=== PATIENT | female | born 1940 | race Caucasian/White ===

== ENCOUNTER 2020-08-25 17:16 | Emergency (ER) | payer OTHER ==
[~2020-08-25] VITALS: Ht 157.5 cm; Wt 45.4 kg
[~2020-08-25 17:16] MED LIST: AUGMENTIN 875-1 EACH PO; AUGMENTIN 875875 MG PO; BYSTOLIC20 MG PO; HYDROCHLOROTH12.5 M1 PO
[2020-08-25 17:45] LABS: URINE BILIRUBIN NEGATIVE (Negative); URINE BLOOD NEGATIVE (Negative); URINE CLARITY CLEAR; URINE COLOR YELLOW; URINE GLUCOSE-RANDOM* NEGATIVE (Negative); URINE KETONES NEGATIVE (Negative); URINE LEUKOCYTES-REFLEX NEGATIVE (Negative); URINE NITRITE-REFLEX NEGATIVE (Negative); URINE PROTEIN (DIPSTICK) NEGATIVE (Negative); URINE UROBILINOGEN 0.2 E.U./dl (0.2-1.0)
[2020-08-25 17:57] LABS: ABSOLUTE NEUTROPHILS 4.1 thou/uL (1.4-8.2); BASOPHILS 1.3 % (0.0-2.0); HEMATOCRIT 35.9 % (37.0-47.0); HEMOGLOBIN 12.1 gm/dL (12.0-15.0); LYMPHOCYTES 22.8 % (24.0-44.0); MCH 31.1 pg (26.0-34.0); MCHC 33.8 g/dL (28.0-37.0); MCV 92.1 fL (80.0-100.0); MONOCYTES 6.8 % (1.0-8.0); PLATELET COUNT 192 thou/uL (150-400); POLYS 67.1 % (36.0-66.0); RDW 13.4 % (10.5-14.5); WBC 6.1 thou/uL (4.0-11.0)
[2020-08-25 18:10] LABS: ANION GAP 11 mmol/L (7-16); BUN 8 mg/dL (7-18); CALCIUM 9.5 mg/dL (8.5-10.1); CHLORIDE 105 mmol/L (98-107); CO2 26 mmol/L (21-32); GLUCOSE 82 mg/dL (74-106); POTASSIUM 3.1 mmol/L (3.5-5.1); SODIUM 142 mmol/L (136-145)
[2020-08-25 18:17] LABS: SALICYLATE < 2.8 mg/dL (2.8-20.0); SGOT 18 U/L (15-37); SGPT 18 U/L (14-59); TOTAL BILIRUBIN 0.6 mg/dL (0.2-1.0)
[2020-08-25 18:20] LABS: AMP/METHAMP Negative (Negative); BARBITURATES Negative (Negative); BENZODIAZEPINES Negative (Negative); COCAINE Negative (Negative); METHADONE Negative (Negative); OPIATES Negative (Negative); PCP Negative (Negative)
[2020-08-26 00:59] VITALS: BP 145/83
--- NOTE | 2020-08-26 06:44 | EKG ---
[address] [address] ELECTROCARDIOGRAM REPORT Name: ADELAIDA CARNEY Room #: [facility] [id number] Admission: 08/25/20 Attend Phys: Discharge: Date of : 38 Report #: [id number] [facility] ED Test Date: 2020-08-25 Test Time: 17:48:34 Pat Name: ADELAIDA CARNEY Department: Room: Gender: F Emotionally Impaired Teacher: Hedy BRADLEY : 1940 Requested By: Hardeep Haines Order Number: [id number] MD: Brennen Duarte Measurements Intervals [place] Rate: 79 P: 71 IA: 147 QRS: -53 QRSD: 84 T: 62 QT: 422 QTc: 484 Interpretive Statements Sinus rhythm Inferior infarct, old No previous ECG available for comparison Electronically Signed On 08-26-2020 6:43:48 CDT by Brennen Duarte [email or web address] <ELECTRONICALLY SIGNED> By: Brennen Duarte MD, [facility] 08/26/20 0643 [id number] Brennen Duarte MD, FACC /EPI
--- NOTE | 2020-08-27 16:00 | H ---
[facility] [place] [address] HISTORY AND PHYSICAL Name: ADELAIDA CARNEY Room #: DEP Deidre#: [id number] Admission: 08/25/20 Attend Phys: Discharge: 08/26/20 Date of : 38 Report #: [id number] THIS REPORT FOR: cc: Lita Garcia MD, Sara A. MD Kerstein, Andrew H. DO ~ DATE OF SERVICE: 08/26/2020 INPATIENT PSYCHIATRIC EVALUATION ATTENDING PSYCHIATRIST: Dae Nation DO MUSIC PROMOTER: Brittney Jackson, nurse practitioner and Hussein Aguilera MD, his hospitalist team. REASON FOR ADMISSION: Altered mental status. HISTORY OF PRESENT ILLNESS: Greatly limited due to the patient being grossly impaired, stating she needs to leave. EMS was called by the patient's daughter to assist [id number]. The patient had been refusing to let people in the house, so they called EMS. The patient refused to answer any questions. EMS was unable to determine if the patient is danger to self or others on the scene. The patient displayed agitation and aggression towards the Emergency Room staff. The patient was combative and screaming. Upon arrival, the patient was very disheveled. The patient's clothes were dirty, hairs were long and not brushed. Security was called to assist with aggression in the ED. Additional information obtained through the patient's daughter, by child protective services social worker Milo SAMANIEGO hotlining back to 2013. The patient's was found down on the scene and he is admitted to the hospital. Apparently, he was down for up to 3-day period. There also was an allegation that I could not able to substantiate that her had a significant drug use problem. The patient did have BAL of 117 in the ED. Dav knew the patient was at [facility] because she was the one who called EMS. She said that she and her did not know things were so bad. LABORATORY DATA: Hematology on the patient is as follows: White cell count 6.1, H and H 12.1 and 35.9, platelet count 192, segmented neutrophil percentage was high at 67.1, lymphocyte percentage low at 22.8. Chemistry: Sodium 142, potassium 3.1, chloride 105, bicarbonate 26, anion gap 11, BUN 8, creatinine 1.0, estimated GFR 53, glucose 82, calcium 9.5, total bilirubin 0.6, AST 18, ALT 18, alkaline phosphatase 114, total protein 7.0, albumin 4.0, vitamin B12 of 254, folate 18 and TSH 1.366. Urinalysis for this patient was completely negative. Toxicology, less than 2.8 salicylate, less than 2 acetaminophen. [facility] [address] [place] [address] HISTORY AND PHYSICAL Name: ADELAIDA CARNEY Room #: DEP Deidre#: [id number] Admission: 08/25/20 Attend Phys: Discharge: 08/26/20 Date of : 38 Report #: [id number] Negative for all substances except the blood alcohol level was 119. COVID-19 PCR was negative. I went ahead and ordered HIV, syphilis antibody and vitamin D to complete the workup. Head CT that was done in the Emergency Room last night, reading was no acute intracranial abnormalities, age-related findings including moderate cerebral and cerebellar volume loss, atherosclerosis, central white matter microvascular ischemia. This was read by Dr. Miranda. PHYSICAL EXAMINATION: VITAL SIGNS: For this patient today with temperature 36.4, pulse rate was high this evening at 136, respiratory rate 18, BP 150/85, O2 sat 98%. This was done sitting. GENERAL: Kyphotic female, disheveled, in hospital gown. She does have rather slow cautious gait. MENTAL STATUS EXAMINATION: Attention and concentration are both quite limited. Speech is normal rate. Thought process is linear, but limited. Thought content focused on leaving, showing basic questions that she did not know the month or day of the week, did not know where she was. No SI or HI, was not able to screen well for auditory, visual, or tactile hallucinations. Memory, I believe, to be impaired, but not able to formally screen due to her condition. Insight, judgment impaired. Fund of knowledge well below average. FORMULATION: An 80-year-old female admitted under [place] 96-hour involuntary hold. The patient is a full code. ALLERGIES: No known allergies. 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 PlanL admitteed involuntary to geriatric psychistry. hospitalist consultation evaluate and stabilize In the hospital now meds are: famotidine 20 mg oral daily, cyanocobalamin 1000 mcg IM daily x 3 days to start tomorrow. I have started her on Seroquel 25 mg oral 3 times a day due to agitation. She received Seroquel this afternoon before I started her on schedule due to reports of agitation. Hospitalist has ordered hydralazine 10 mg q. 6 hours p.r.n. for hypertension greater than 170, otherwise just the house PRNs. ESTIMATED LENGTH OF STAY: At least 10-14 days. If the patient does not clear up, she may indeed require [facility], [address] [address] HISTORY AND PHYSICAL Name: ADELAIDA CARNEY Room #: DEP [facility].#: [id number] Admission: 08/25/20 Attend Phys: Discharge: 08/26/20 Date of : 38 Report #: [id number] conservatorship be pursued. We will attempt on Saturday to get more information from family members. Also they did an EKG in the ER, ventricular rate 79, FL interval 147 milliseconds, QT 422 milliseconds, QTc 44 milliseconds and sinus rhythm. 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 Dr. Duarte read. petroleum refinery worker received a call from [facility]. She said, there is not much known about the patient. They have been involved since 2013. Apparently, the is the patient's DPOA and refuses to help much with the patient. They receives food delivery service and refused to leave his house. She said they are hoarders. They had contact with the patient's son once in the past. Both the patient and her noted to be alcohol drinkers. Social work got a hold of Dav Bazan, patient's [id number] answered. She gave us her number [phone]. petroleum refinery worker told her she could not tell her anything as she is not the patient's DPOA. Greater than 45 minutes spent on this case. <ELECTRONICALLY SIGNED> By: Dae Nation, 08/27/20 1600 [id number] Dae Nation, /nt
== END 2020-08-26 08:03 | disposition still patient (30) ==
LOC: ER 17:16
PROVIDERS: Emergency Medicine
DX: R41.82 Altered mental status, unspecified (principal); F29 Unspecified psychosis not due to a substance or known physiological condition; R45.1 Restlessness and agitation; I10 Essential (primary) hypertension; Z79.899 Other long term (current) drug therapy; Z20.822 Contact with and (suspected) exposure to COVID-19

== ENCOUNTER 2020-08-26 03:37 | Inpatient (IN) | payer OTHER ==
[~2020-08-26] VITALS: Ht 157.5 cm; Wt 41.3 kg
--- NOTE | 2020-08-26 07:37 | NUR ---
PT ARRIVED TO ROOM VIA CART. PT WILL BE 96 HR HOLD, PT ASLEEP AT THIS TIME WHEN ARRIVED TO UNIT. PT ASSISTED TO BED.
--- NOTE | 2020-08-26 09:35 | NUR ---
GIVING PT A COPY OF 96 HR HOLD PAPER AND TO INFORM HER. PT ASLEEP AT THIS TIME. ACCOMPANIED BY ELIZABETH MENDES TO DO ASSESSMENT. PT SEEMS COMFORTABLE.
--- NOTE | 2020-08-26 09:42 | NUR ---
АНДРЕЙ completed a 96 hour hold for pt; this document was notarized by the Hot Man on duty. Pt's rights were given to her nurse to read to pt. SW team will continue to follow pt during her stay on this unit.
--- NOTE | 2020-08-26 11:39 | NUR ---
After tx team, pt came to and explained that she has been thinking things over, and spoke with her sister. She and her sister decided that her sister will come to this weekend and then pick pt up Saturday afternoon. She will stay with her for a couple weeks to assist pt in gathering her affairs, and then she will fly back with pt to [place]. Pt said her sons are in agreement with this plan. Pt left office smiling. contacted Dr. Nation and updated him on pt's plan. He said he is in agreement with a Saturday afternoon d/c given pt is still not experiencing SI. team will continue to follow pt during her stay on this unit.
--- NOTE | 2020-08-26 12:00 | NUR ---
PT UP AND WALKING WITH WALKER. PT HAS SLOW GAIT. WALKED WITH PT BACK TO ROOM TO PUT ON BRIEF PANTS. PT LOOKING FOR HER DOG IN ROOM, TELLING DOG TO COME HERE. PT LOOKING UNDER PILLOW AND ALSO UNDER BED. PT TELLING , NOT IN ROOM, THAT SHE WILL BE BACK AND SHE CLOSED THE DOOR. ESCORTED PT BACK TO DINING ROOM AND PT SAT IN RECLINER CHAIR.
--- NOTE | 2020-08-26 13:00 | NUR ---
PT DIDN'T EAT ANY LUNCH. GAVE PT WATER AND ICE CREAM. PT STILL WANTING TO GET UP AND LOOK FOR DOG.
--- NOTE | 2020-08-26 15:14 | NUR ---
PT WAS LOOKING FOR HER DOG AND . PT CHASING DR. ESCALANTE AROUND THINKING HE IS HER . PT VERY CONFUSED. PT UP WALKING AROUND WITHOUT WALKER AT THIS TIME. PT SEEMS MORE AWAKE AT THIS TIME, NO SO GROGGY.
--- NOTE | 2020-08-26 16:33 | NUR ---
ADM SEROQUEL 50MG PO CRUSHED X1 FOR CONFUSION IN [facility]OG[facility].
--- NOTE | 2020-08-26 16:38 | NUR ---
АНДРЕЙ received a call from Samantha with [facility] at [phone] and [phone]. She she said there is not much known about pt. She said they have been involved with pt and since 2013, several times, due to 's frequent falls. She said is pt's DPOA and he refuses much help for pt and does not want anyone in the house. She said they receive food delivery services and refuse to leave the house. She said the house is a horders house. She said they have had contact with Bimal Butterfield once in the past and gave a number of [phone]. She said the last person to call that number notated it was invalid. Samantha said both pt and have been noted to be big alcohol drinkers. АНДРЕЙ contacted the number given and Davstacey Bazan, pt's daughter in law answered. She gave a cell number [phone]. АНДРЕЙ told her she could not tell her anything as she is not pt's DPOA. Dav knew pt was at [facility] because she is the one who called EMS. She said that she and her did not know things were so bad. АНДРЕЙ told her to not be surprised if [facility] contacts her and Bimal Fofana. She said ok. АНДРЕЙ provided an update to Dr. Nation and Samantha on her conversation with Dav. АНДРЕЙ team will continue to follow pt during her stay on this unit.
--- NOTE | 2020-08-26 17:30 | NUR ---
ASSISTED PT TO BATHROOM, DIDN'T KNOW IF PT VOIDED. PT DID PULL PANTS UP. WALKED WITH PT BACK TO DINING ROOM TO ENCOURAGE HER TO EAT. PT HAD BURGER AND COOKIE ON TOP OF BURGER AND WRAPPED IT UP TO SAVE FOR LATER. THIS SENIOR MASTER SCHEDULER ENCOURAGED PT TO SIT AND DRINK WATER.
[2020-08-26 19:52] VITALS: BP 150/85
--- NOTE | 2020-08-26 22:34 | NUR ---
PT PACING THE HALLS, WANDERING INTO PT R ROOMS, PICKING AT FLOOR DOOR FRAMES FLOOR. PT MUMBLING TO HERSELF. AT TIMES SPEECH IS CLEAR. ASKING WHERE AL IS, ASKING ABOUT THE DOGS AND HOW TO PREVENT THEM FROM GOING INTO ROOMS. PT DECLINED SNACK. PT WAS COMPLIANT WITH SPOONFUL OF PUDDING WITH MEDS. PTS GAIT STEADY BUT SHE WALKS HUNCHED OVER. PT PROVIDED W/C TO PROPEL SELF IN AND SHE WAS INTERMITTENTLY COMPLIANT. PT HAD LESS THAN 5 MINUTE TIME PERIOD WHEN SHE SAT IN LOUNGE CHAIR AND SHUT HER EYES TO REST. GARAGE DOOR IN DAY ROOM AWAKENED HER AND SHE SAID THERE WAS SOMEONE AT THE DOOR AND SHE NEEDED TO ANSWER IT. LATER IN EVENING PT STARTED PUSHING ON DOORS TO LEAVE AND INCREASING HER PACE AROUND THE HALLS. PT NOT COMPLIANT WITH ADLS. PRN IM PROVIDED. PT DID THROW HER ELBOW AT STAFF WHEN PT WAS ENCOURAGED TO SIT IN W/C AND GO INTO DAY ROOM WITH TECH. PT ABLE TO BE VERBALLY REDIRECTED, APPROXIMATELY 15 MINS AFTER PRN MEDICATION GIVEN.
[2020-08-27 08:28] VITALS: BP 195/95
[2020-08-27 09:34] LABS: HEMATOCRIT 36.1 % (37.0-47.0); HEMOGLOBIN 12.2 gm/dL (12.0-15.0); MCHC 33.8 g/dL (28.0-37.0); MCV 91.9 fL (80.0-100.0); RBC 3.92 mil/uL (4.20-5.00); RDW 14.2 % (10.5-14.5); WBC 9.1 thou/uL (4.0-11.0)
[2020-08-27 09:43] LABS: ALBUMIN 4.4 g/dL (3.4-5.0); CALCIUM 10.3 mg/dL (8.5-10.1); CREATININE 1.7 mg/dL (0.6-1.0); MAGNESIUM 1.8 mg/dL (1.8-2.4); PHOSPHORUS 3.2 mg/dL (2.6-4.7); POTASSIUM 3.2 mmol/L (3.5-5.1); TOTAL BILIRUBIN 0.5 mg/dL (0.2-1.0); TOTAL PROTEIN 7.8 g/dL (6.4-8.2)
[2020-08-27 11:00] VITALS: BP 152/58
--- NOTE | 2020-08-27 12:32 | NUR ---
Alert and orientated to person and place. Sitting quietly in chair most of AM. Ate breakfast independently. Confused speech. Denies SI/HI. Became combative and agitated when IV being placed. Breath sounds clear. Reg HR auscultated. Color pink with brisk capillary refill and palpable peripheral pulses. BP 195/95 with HR mid 80s. Repeated with smaller cuff, 196 systolic. BP then taken with manual cuff, 201/92 with HR mid 80s. Hydralazine given with AM meds. K+ noted to be 2.1 in ER on 07/25 with no documentation of K+ replacement. Dr. Patel notified. Meds and labs ordered, given per order. Brief dry. Active bowel sounds over soft, flat abdomen. 1200 Dr. Patel here assessed pt, IVF ordered. Pt refusing IV, became agitated and combative. #22 g jelco placed on second attempt per L forearm, withdraws and flushes without difficulty. D5NS hung and infusing at 125cc/hr. Pt. pulled out first IV before it could be taped in place. Currently sitting in gerichair in hallway whistling and talking without s/o distress. Pt. drank 240cc H2O without difficulty.
[2020-08-27 13:53] VITALS: BP 188/80
[2020-08-27 20:04] VITALS: BP 143/84
--- NOTE | 2020-08-27 22:36 | NUR ---
1600 Pt remains hypertensive with BP 180-200/90-100. Also slightly agitated repeatedly trying to get out of chair. Additional quetiapine and hydralazine given PO mixed in yogurt. At approximately 1645 Dr. Patel notified of continued hypertension. IV stopped with approximately 600 cc infused and meds given per order. Pt. attempting to eat dinner independently. In chair with lap davin in place. 2100 Pt. sitting quietly in gerichair without s/o distress. Compliant with meds. Lap davin remains in place.
--- NOTE | 2020-08-28 03:42 | NUR ---
Assumed care on 08/28/20 @ 0001, at that time, in bed eyes closed respirations even and unlabored.
[2020-08-28 05:50] LABS: ABSOLUTE NEUTROPHILS 10.8 thou/uL (1.4-8.2); BASOPHILS 0.4 % (0.0-2.0); EOSINOPHILS 0.2 % (0.0-3.0); HEMATOCRIT 36.3 % (37.0-47.0); HEMOGLOBIN 11.9 gm/dL (12.0-15.0); LYMPHOCYTES 8.8 % (24.0-44.0); MCH 30.3 pg (26.0-34.0); MCHC 32.7 g/dL (28.0-37.0); MCV 92.8 fL (80.0-100.0); MONOCYTES 6.5 % (1.0-8.0); PLATELET COUNT 198 thou/uL (150-400); POLYS 84.1 % (36.0-66.0); RBC 3.91 mil/uL (4.20-5.00); RDW 14.2 % (10.5-14.5); WBC 12.8 thou/uL (4.0-11.0)
[2020-08-28 06:06] LABS: HIV ANTIBODY Non Reactive (Non Reactive)
[2020-08-28 06:09] LABS: CALCIUM 9.9 mg/dL (8.5-10.1); MAGNESIUM 1.7 mg/dL (1.8-2.4); POTASSIUM 3.5 mmol/L (3.5-5.1)
[2020-08-28 09:57] VITALS: BP 173/82
--- NOTE | 2020-08-28 13:11 | NUR ---
ON INITAL APPRAOCH THIS AM WAS CALM SITTING IN GERICHAIR IN DAYROOM-MILDLY SOMULENT BUT ROUSABLE TO VERBAL STIMULI. CONVERSATION RAMBLING-NONGOAL DIRECTED-APPEARS TO BE ORIENTED TO NAME ONLY. AT APPROX 1100 GOT UP OUT OF CHAIR SOUNDING CHAIR EXIT ALARM-GAIT IS INITALLY UNSTEADY SO STAFF AT SIDE FOR SBA.INTRUSIVE-GRABBING PEERS WALKERS AND ENTERING OTHERS ROOMS PICKING UP THEIR CLOTHING AND GLASSES BECOMES ARGUMENTATIVE/BELLIGERENT WITH ATTEMPTS TO REDIRECT INSISTING THAT ITEMS BELONG TO HER MOTHER WHO IS "AROUND HERE SOMEWHERE-SHE IS 99 YEARS OLD"ATTEMPTED TO ADMINISTER PO KCL ORDERED BY BUT PT REFUSES-REFUSES TO COME INTO ROOM TO SIT QUIETLY DECREASE STIMULI -REFUSES INSITING THAT WE ARE TRYING TO"LOCK ME IN HERE GEODON 10MG GIVEN IM
[2020-08-28 16:03] VITALS: BP 134/78
--- NOTE | 2020-08-28 18:18 | NUR ---
HAS CONTINUED RESTLESS AND AGITATED-PULLED CHAIR ALARM OUT FROM UNDER HER AND YELLING LOUDLY BECAME UPSET WITH THIS NURSE YELLING LOUDLY "YOU SMASHED THAT LITTLE DOG-YOU SMASHED MY DOG GET AWAY FROM ME-YOU KILLED MY DOG GAIT VERY UNSTEADY AND REFUSED STAFF ASSISTANCE TO AMBULATE-HORTICULTURE INSTRUCTOR NOTIFIED AND "O"RECEIVED TO USE LAP DEYSI D/T IMPULSIVE BEHAVIOR,ATAXIA-PSYCHOSIS. LITTLE RESPONSE TO GEODON IM GIVEN EARLIER-ORDER RECEIVED AT 1600 TO MONITOR FOR ETOH WITHDRAWL AND CIWA ASSESSMENT COMPLETED AT 1630 AND 1730 PER PROTOCOL. BP SLIGHTLY ELEVATED AT 149/83 BUT THIS WAS AFTER ATTEMPTING TO HIT AND KICK STAFF SHE WAS BEING ASSISTED TO [facility]-INSISTING THAT HER AND DOG WERE JUST OUTSIDE OF THE DOOR AND SHE NEEDED TO GET TO THEM. RECHECKED LATER AFTER SITTING QUIETLY FOR 10-15 MINUTES AND WAS 140/78. APPETITE VERY GOOD-NO TREMOR-NO DIAPHORESIS,WILL CONTINUE TO MONITOR VS AND FOR S/S OF ETOH WITHDRAWL. REMAINS ON HIGH FALLS PRECAUTIONS
[2020-08-28 20:10] VITALS: BP 178/81
[2020-08-28 21:10] VITALS: BP 175/81
[2020-08-28 21:50] VITALS: BP 187/144
[2020-08-29 01:30] VITALS: BP 192/92
--- NOTE | 2020-08-29 01:51 | NUR ---
PATIENT BP CHECKED AND IS 187/144. HYDRALAZINE 10MG PO CRUSHED IN PUDDING. PATIENT RESTING WITH HER HEAD CROOKED TO RIGHT. REFUSES REPOSITION AND DENIES PAIN. KEEPS REMOVING PILLOW WHEN PLACED BETWEEN HER HEAD AND CHAIR ARM. NOTIFIED ELIZABETH PRETTY OF BP. CIWA X 4 HOURS. WNL. CONTINUING TO MONITOR.
--- NOTE | 2020-08-29 02:25 | NUR ---
RECHECKED PATIENT'S BP BY MACHINE. BP 192/92. PATIENT WAS TALKING AND MOVING ARM SHE TALKED. SHE REMAINS CALM AND RELAXED. SHE IS A/0X1. SHE BELIEVES SHE IS WAITING ON FRIENDS FOR LUNCH AND SHE RESPONDS TO ANOTHER PATIENT THAT IS TALKING ACROSS THE ROOM. BOTH PATIENT'S DELUSIONAL AND NOT TRACKING WITH WHAT IS BEING SAID. PT IN LIZZ CHAIR WITH CHAIR ALARM ON AND WHEELS LOCKED.
--- NOTE | 2020-08-29 03:38 | NUR ---
PATIENT ASSISTED TO BED AND INCONTINENCE CARES DONE. PATIENT DID NOT WANT TO STAY IN BED EARLIER. BP AT THIS TIME IS 171/83. PT RELAXED. PATIENT HAS A SALINE LOCK IV IN LEFT WRIST THAT IS INTACT WITHOUT REDNESS OR SIGNS OF INFECTION. COBAND WRAPPED AROUND IV SITE TO KEEP INTACT. BED IN LOW POSITION AND BED ALARM IS ON. ROUTINE ROUNDS TO ASSESS SAFETY AND STATUS OF PATIENT.
[2020-08-29 03:45] VITALS: BP 171/73
[2020-08-29 08:37] LABS: ABSOLUTE NEUTROPHILS 8.7 thou/uL (1.4-8.2); BASOPHILS 0.9 % (0.0-2.0); EOSINOPHILS 0.7 % (0.0-3.0); HEMATOCRIT 39.6 % (37.0-47.0); HEMOGLOBIN 12.9 gm/dL (12.0-15.0); LYMPHOCYTES 11.5 % (24.0-44.0); MCH 30.3 pg (26.0-34.0); MCHC 32.6 g/dL (28.0-37.0); MCV 92.9 fL (80.0-100.0); MONOCYTES 8.8 % (1.0-8.0); POLYS 78.1 % (36.0-66.0); RBC 4.26 mil/uL (4.20-5.00); RDW 14.2 % (10.5-14.5); WBC 11.1 thou/uL (4.0-11.0)
[2020-08-29 08:43] LABS: CALCIUM 10.1 mg/dL (8.5-10.1); PHOSPHORUS 3.2 mg/dL (2.6-4.7); POTASSIUM 3.5 mmol/L (3.5-5.1)
[2020-08-29 08:45] LABS: PLATELET COUNT 209 thou/uL (150-400)
--- NOTE | 2020-08-29 13:18 | NUR ---
Followup: continues on SBH. New wt this week 185 lb, last week was 189 lb however pt reported verbal wt 185 lb. Intake is good >80% all meals. Continue to assess as low nutrition risk
--- NOTE | 2020-08-29 14:07 | NUR ---
АНДРЕЙ followed up with Dav on Saturday's conversation. Dav said that she and her discussed both pt and her and have now reached out to an insurance defense attorney; they are awaiting a call back. АНДРЕЙ advised them to ask for emergency guardianship. АНДРЕЙ also asked her to discuss with her if pt will need Medicaid or if they have private funds, and what area they would like pt to reside in. АНДРЕЙ and Dav scheduled a family meeting for 08/30 @1230pm. АНДРЕЙ contacted Samantha ([facility]) and provided an update. She asked to be a part of the family meeting tomorrow. She also said she has now received a report on pt's and will now be following that pt. She asked for the SW on pt's , АНДРЕЙ said she will find out and give that SW her contact info. АНДРЕЙ contacted the medical casemanager horticulture supervisor and asked for the info of the SW over pt 's case. АНДРЕЙ team will continue to follow pt during her stay on this unit.
[2020-08-29 19:00] VITALS: BP 160/84
[2020-08-29 19:10] VITALS: BP 163/82
[2020-08-29 20:06] LABS: SYPHILIS AB Non Reactive (Non Reactive)
[2020-08-29 20:15] VITALS: BP 177/86
--- NOTE | 2020-08-30 02:34 | NUR ---
PATIENT WAS SITTING IN LIZZ CHAIR THIS EVENING WHEN ASSUMED CARE OF PATIENT AT 1900. DAY NURSE REPORTED THAT PATIENT WAS CALMER TODAY BUT LIKES TO KEEP HER HANDS BUSY SO SHE WAS FOLDING TOWELS FOR AN ACTIVITY. PATIENT IMPULSIVELY GOT UP OUT OF HER LIZZ CHAIR AND BEGAN WALKING UNSTEADLY AROUND THE DAYROOM. SHE YELLED AT THIS NURSE FOR TOUCHING HER ARM TO ASSIST HER IN WALKING. SHE WENT TO A MALE PATIENT AND WAS PUTTING HER HANDS ON HIS SHOULDER AND BACK AND THINKING HE WAS SOMEONE ELSE. SHE DID NOT UNDERSTAND WHEN PATIENT TOLD HER POLITELY THAT HE DIDN'T WANT HER TOUCHING HIM. THIS NURSE TRYING TO REMOVE PATIENT FROM MALE PATIENT. SHE WAS BECOMING MORE AGITATED. HAD CARRIER ASSOCIATE COME TO HELP GET HER BACK INTO HER LIZZ CHAIR. CHAIR ALARM WAS ON. PATIENT DID CALM ENOUGH TO TAKE HER MEDS CRUSHED IN PUDDING. PATIENT'S BP TAKEN AND WAS UP TO 176/86. HYDRALAZINE 10MG PO GIVEN. PATIENT ASSISTED TO BED. SHE IS SLEEPING AT THIS TIME. INCONTINENCE CARES DONE. NO SIGNS OF SI/HI TONIGHT. DENIES PAIN. SHE DID SAY TO THIS NURSE WHEN TOLD I WAS GOING TO GO GET HER MEDS FOR HER THAT SHE WOULD TAKE THEM IF HER SAID IT WAS OK. SHE THEN WENT ON TO SAY THAT HER WAS MORE THAN A GOOD MAN. SHE STATES HE IS THE BEST. SHE COULDN'T REMEMBER HOW LONG THEY HAVE BEEN , BUT SHE SAID IT HAS BEEN A LONG TIME. PATIENT IN THAT MOMENT HAS BEEN MORE COHERENT THAN I HAD SEEN HER IN 2 DAYS. PATIENT HAS AN IV SALINE LOCK IN LEFT WRIST. NO SIGNS OF REDNESS, OR INFECTION. IV IS PATENT. IV SITE WRAPPED WITH COBAN. PATIENT JUST TOOK PUDDING TONIGHT AND A FEW SIPS OF WATER. BED IN LOW POSITION AND BED ALARM IS ON. CONTINUING TO MONITOR. ROUTINE ROUNDS TO ASSESS SAFETY AND STATUS OF PATIENT. PATIENT A/0X1-2. CONFUSED. INCONTINENCE CARES PRN.
[2020-08-30 03:04] VITALS: BP 146/63
[2020-08-30 09:12] VITALS: BP 148/71
--- NOTE | 2020-08-30 11:31 | NUR ---
Alert to name only, reaching for unseen objects at times, confused speech, will not state what she is seeing. Calm and cooperative much of the time, independent with eating. At other times she attempts to hit, kick, pinch and bite but calms down quickly when left alone. At times purposefully refuses to interact by closing eyes/mouth firmly. Denies SI/HI, no speech/behavior suggestive of SI. Breath sounds clear and equal bilaterally. Reg HR auscultated. Color pink with brisk capillary refill and palpable peripheral pulses. Active bowel sounds over soft, flat abdomen. Ambulates with regular, slightly unsteady gait with assistance, refuses walker sporadiacally. Occassionally reaches for unseen objects on floor. Currently sitting in gerichair without s/o distress.
[2020-08-30 19:14] VITALS: BP 160/81
--- NOTE | 2020-08-31 01:22 | NUR ---
Assumed care on 08/30/20 @ 1900, cooperated with assessment and compliant with medication administration, taking meds crushed in applesauce. Noted to be talking to unseen others. When transferred to bed, became uncompliant with incontinent care and refused to allow self to be taken to the toileted. Order for Haldol 5mg n4plove prn agitation obtained. Returned to kathya chair as she did not want to stay in bed, returned to day room. Noted to be talking to unseen others (WOOD).
[2020-08-31 01:37] VITALS: BP 160/81
--- NOTE | 2020-08-31 12:55 | NUR ---
Yesterday Dr. Nation and АНДРЕЙ participated in a family meeting via phone with Dav Wallis Jr, and [facility] worker Samantha. Everyone gave in put on what they would like to see happen and their concerns for pt. Bimal said he has been trying for a while to get his parents to move to [place], but they consistently refused. He has decided to obtain guardianship of both. АНДРЕЙ advised they may be able to seek emergency guardianship as pt's and her 's living conditions are unsafe. Both Bimal and Dav said they are awaiting a call back from an claim attorney. They will provide an update once they get a call back. Bimal asked SW to have pt screened for Medicaid. АНДРЕЙ contacted [facility] [employer] to have pt and her screened for Medicaid. She was told no by the rep because he said he needed guardianship papers first. АНДРЕЙ provided this update to the [facility] director in tx team today. АНДРЕЙ received a call from pt 's SW on the medical side Mirian. АНДРЕЙ provided to her an update on pt including the contact info for Samantha as she is also the casemanager for her pt. АНДРЕЙ also provided to her an update on yesterday's meeting. АНДРЕЙ team will continue to follow pt during her stay on this unit.
--- NOTE | 2020-08-31 18:37 | NUR ---
0700 ASSUMED CARE OF PATIENT, PATIENT SLEEPING IN LIZZ CHAIR. PATIENT WAKES FOR BREAKFAST BUT SLEEPS OFF AND ON. AM MEDICATIONS NOT GIVEN, PATIENT SLEEPING. AFTER LUNCH PATIENT IN WHEEL CHAIR PROPELLING SELF. MEDICATIONS TAKEN WHOLE WITHOUT DIFFICULTY. ALERT TO SELF ONLY. PATIENT QUIET AND CALM. FLAT AFFECT. SMILES AT TIMES. LAP BUDDING FASTENED IN FROM WHILE IN WC. DENIES PAIN.
[2020-09-01 09:29] VITALS: BP 156/74
[2020-09-01 19:45] VITALS: BP 135/87
--- NOTE | 2020-09-01 20:24 | NUR ---
0700 ASSUMED CARE OF PATIENT, PATIENT IN LIZZ CHAIR AT THAT TIME. PATIENT WITH LAP DEYSI SECURED INFRONT. PATIENT EATS MEALS WITH ASSIST AND TIMES WITHOUT. PATIENT NOTED SMILING AT TIMES. CONFUSED AT TIMES BELIEVING AT BOW[place]ING ALLEY. CALLS OUT FOR AND PROPELLS SELF IN WHEEL CHAIR LOOKING FOR . CHAIR ALARM IN PLACE FOR SAFETY PRECATIONS. DEIES SI/HI. COMBATIVE WITH CARES AT TIMES.
[2020-09-02 02:06] VITALS: BP 135/87
--- NOTE | 2020-09-02 02:17 | NUR ---
Assumed care on 09/01/20 @ 1900, cooperated with assessment and took meds crushed in pudding. Incontinent and when incontinent care is given, makes inappropriate sexual statement and fights and scratches aides who are giving incontinent care. Says to the female senior environmental scientist, you are men and you are tryng to have sex with me, the senior environmental scientist reoriented patient that they are women, when senior environmental scientist ask patient to wipe her bottom, she says, what are you trying to put in my pussy? Reoriented to focus on getting clean brief on. Patient fights, scratches and hits when given cares. Provided Tylenol 650 for general discomfort and [id number] for agitation crushed in pudding. Patient observed to speak to unseen others throughout the evening and night.
[2020-09-02 10:33] VITALS: BP 156/62
--- NOTE | 2020-09-02 11:12 | NUR ---
RT Progress Note- At this time Mona's participation in the milieu and recreation therapy groups has been very minimal. Mona has been brought to groups but has provided little participation when present. Mona's orientation is limited and she is unable to provide lengthy focus. When recreation therapy has met with pt individually she is able to share reminiscing stories with very slow recall. She has not displayed agitated or aggressive behavior with RT since admission.
--- NOTE | 2020-09-02 12:49 | NUR ---
PT ALERT AND ORIENTED TIMES ONE. VSS. PT DENIES PAIN/SOA. PT UNABLE TO ANSWER ASSESSMENT QUESTIONS AT THIS TIME. PT TOLERATES MEDS AND MEALS. PT INTERACTS WITH STAFF LITTLE INTERACTION WITH PEERS. PT DID ATTEND GROUPS. WILL CONTINUE TO MONITOR.
--- NOTE | 2020-09-02 15:17 | NUR ---
АНДРЕЙ called both the house number for pt's son/daughter in law and Dav's cell. АНДРЕЙ unable to leave a msg on the home number. However, SW left a msg on Dav's cell asking for an update on guardianship. SW team will continue to follow pt during her stay on this unit.
[2020-09-02 19:38] VITALS: BP 160/81
[2020-09-02 22:01] VITALS: BP 160/81
--- NOTE | 2020-09-03 01:25 | NUR ---
Assumed care on 09/02/20 @ 1900, Drowsy but arouses to voice, Oriented x1 VSS. Allowed assessment, but when incontinent cares are given, fights, kicks spits staff. Takes meds crushed in pudding, and is compliant with both meds and drinking 6 oz of water. Allowed herself to be transferred to bed @ , and is in bed with eyes closed, respirations even and unlabored. Bed in lwo position, bed alarm set.
[2020-09-03 09:07] VITALS: BP 160/69
--- NOTE | 2020-09-03 18:45 | NUR ---
0700 ASSUMED CARE OF PATIENT, PATIENT SLEEPING IN LIZZ CHAIR. PATIENT DOES NOT AWAKE FOR BREAKFAST AND AM MEDS NOT GIVEN. PATIENT AWAKES FOR LUNCH AFTERNOON MEDS GIVEN WITHOUT DIFFICULTY. PATIENT STANDS WITH UNSTEADY GAIT, ASSIST X1 WHEN TRANSFERING. PTIENT DENIES SI/HI, NO C/O PAIN. BS ACTIVE, LS CLEAR. PATIENT SHOWERED TODAY.
[2020-09-03 19:41] VITALS: BP 186/95
--- NOTE | 2020-09-04 03:06 | NUR ---
PATIENT AOX1 CONFUSED AND FORGETFUL. PATIENT TOOK MEDS WITH A LOT OF ENCOURAGEMENT. PATIENT ENCOURAGED HS MEDS. PATIENT NEED MAXIMUM ASSISTANCE WITH ADL, BED MOBILITY, TRANSFER AND TOILETING. PATIENT HAD A FLAT AFFECT, NO EYE CONTACT. PATIENT INCONTIENT PERICARE AND BARRIER CREAM APPLIED NEEDED. FALL PRECAUTION IN PLACE.PATIENT IN BED ASLEEP AT THIS TIME BREATHING REGULAR AND UNLABOURED.
[2020-09-04 08:55] VITALS: BP 125/73
--- NOTE | 2020-09-04 11:46 | NUR ---
1105 PATIENT SON ON FLOOR TO VISIT. SON HAD QUESTIONS REGARDING PATIENTS CONDITION PATIENT IS VERY SLEEPY AND DECRESED INTAKE. DR LOPEZ AND DR WATTS AWARE. ORDERS RECIEVED FOR LAB WORK. SON WILL CALL LATER FOR UPDATE, SON HEADED DOWN TO VISIT DAD THAT IS ALSO ADMITED IN HOSPITAL.
[2020-09-04 11:51] LABS: HEMATOCRIT 38.9 % (37.0-47.0); HEMOGLOBIN 12.8 gm/dL (12.0-15.0); MCH 30.4 pg (26.0-34.0); MCHC 32.8 g/dL (28.0-37.0); MCV 92.5 fL (80.0-100.0); RBC 4.2 mil/uL (4.20-5.00); RDW 14.5 % (10.5-14.5); WBC 14.2 thou/uL (4.0-11.0)
[2020-09-04 12:24] LABS: ALBUMIN 3.2 g/dL (3.4-5.0); CALCIUM 10.2 mg/dL (8.5-10.1); CREATININE 1.2 mg/dL (0.6-1.0); POTASSIUM 4.7 mmol/L (3.5-5.1); TOTAL BILIRUBIN 0.6 mg/dL (0.2-1.0); TOTAL PROTEIN 7.3 g/dL (6.4-8.2)
[2020-09-04 14:41] LABS: URINE BILIRUBIN NEGATIVE (Negative); URINE BLOOD 1+ (Negative); URINE CLARITY CLOUDY; URINE COLOR YELLOW; URINE GLUCOSE-RANDOM* NEGATIVE (Negative); URINE KETONES TRACE (Negative); URINE NITRITE-REFLEX NEGATIVE (Negative); URINE PROTEIN (DIPSTICK) 1+ (Negative); URINE SPECIFIC GRAVITY 1.025 (1.005-1.035); URINE UROBILINOGEN 0.2 E.U./dl (0.2-1.0)
[2020-09-04 14:45] LABS: URINE LEUKOCYTES-REFLEX 3+ (Negative)
[2020-09-04 14:54] LABS: BACTERIA-REFLEX >30 Many /HPF (None Seen); CASTS None Seen /LPF (None Seen); CRYSTALS None Seen /LPF (None Seen); SQUAMOUS None Seen /LPF (0-3); URINE RBC 3-10 Few /HPF (0-2); URINE WBC-REFLEX >25 Many /HPF (0-5)
--- NOTE | 2020-09-04 16:26 | NUR ---
RECIEVED ORDERS TO INFUSE IV FLUIDS. AT 1415 SL STARTED A 22G TO RIGHT FA. PATIENT SLEPT THROUGH THE INSERTION OF IV. 1430 STRAIGHT CATH COMPLETED WITH CLOUDY YELLOW URINE OBTAINED FOR UA. URINE NOTED WITH STRONG ODOR. PORTABLE XRAYS OBTAINED IN ROOM. PATIENT OUT TO DAYROOM FOR OBSERVATION. IV FLUIDS STARTED AT 1447. FLUIDS INFUSING WITHOUT DIFFICULY TO RIGHT FA. PATIENT SLEEPING IN CHAIR. PATIENT CONTINUES TO SLEEP IN LIZZ CHAIR AT THIS TIME.
[2020-09-04 17:32] VITALS: BP 158/91
[2020-09-04 19:13] VITALS: BP 163/71
--- NOTE | 2020-09-04 19:48 | NUR ---
1850 IV FLUID COMPLETE. SALINE LOCK FLUSHED WITH 10CC NS. PATIENT TO ROOM, IM ROCEPHIN 1 GM GIVEN TO LEFT HIP. PATIENT TOLERATED WELL. PATIENT IN LIZZ CHAIR AND OUT TO DAYROOM.
--- NOTE | 2020-09-05 03:39 | NUR ---
PT LYING IN BED. DENIES PAIN. INCONTINENT. FREQUENT OBSERVATION.
[2020-09-05 05:49] LABS: HEMATOCRIT 36.3 % (37.0-47.0); HEMOGLOBIN 11.9 gm/dL (12.0-15.0); MCH 30.6 pg (26.0-34.0); MCHC 32.7 g/dL (28.0-37.0); MCV 93.6 fL (80.0-100.0); RBC 3.88 mil/uL (4.20-5.00); RDW 14.6 % (10.5-14.5); WBC 12.2 thou/uL (4.0-11.0)
[2020-09-05 05:56] LABS: CALCIUM 9.9 mg/dL (8.5-10.1); CREATININE 0.9 mg/dL (0.6-1.0); MAGNESIUM 1.9 mg/dL (1.8-2.4)
[2020-09-05 05:57] LABS: POTASSIUM 3.6 mmol/L (3.5-5.1)
[2020-09-05 08:55] VITALS: BP 147/68
--- NOTE | 2020-09-05 11:32 | NUR ---
АНДРЕЙ contacted both home and Dav's cell. No answer. АНДРЕЙ left a msg. АНДРЕЙ contacted [facility] worker Samantha and asked if she had another number for Bimal Fofana. She gave SW his work number of [phone]. АНДРЕЙ contacted that number and AJr receptionist nurse said he was in clinic all day but will give the msg. АНДРЕЙ left him Dr. [place] work cell. SW team will continue to follow pt during her stay on this unit.
--- NOTE | 2020-09-05 18:13 | NUR ---
0700 ASSUMED CARE OF PATIENT, PATIENT IN DAYROOM SITTING IN GERICHAIR AWAKE AND ALERT. PATIENT FEEDS SELF FOR BREAKFAST. MEDICATION TAKEN CRUCHED IN PUDDING WITHOUT DIFFICULTY. PATIENT TALKING WITH STAFF, AND AT TIMES PATIENT DOES NOT MAKE SENSE. PATIENT SMILES AND APPEARS HAPPY AT TIMES. TO BR STANDS WITH ASSIST X1-2, UNSTEADY GAIT. GAIT BELT USED TO TRANSFER TO [facility]. SKIN ASSESSMENT COMPLETED WITH NO WOUNDS NOTED TO BOTTOM. MAY CARE COMPLETED. PATIENT THANKS STAFF FOR HELPING HER. BACK TO CHAIR WITH CHAIR ALARM IN PLACE, YELLOW SHIRT ON. FALL PREACATIONS IN PLACE. ALERT AND ORIENTED TO SELF. LAST BM WAS 08/29/20 KUB ON 09/04/20 SHOWED CONSTIPATION. MIRALAX ORDERED AND GIVEN TO PATIENT. PATIENT ASSISTED WITH DINNER, EATS WELL.
[2020-09-05 19:34] VITALS: BP 161/65
--- NOTE | 2020-09-06 02:17 | NUR ---
ASSESSED PT. EVENING MEDS GIVEN CRUSHED IN PUDDING. PT SLEEPING DURING ASSESSMENT. TRANSFRRED FROM CHAIR TO BED WITH ASSISTX2. PT MOUTHS IN AUDIBLE WORDS. ALERT TO SELF WITH CONFUSION. FALL PREC MAINTAINED AND WILL CONT TO MONITOR.
--- NOTE | 2020-09-06 07:51 | NUR ---
Discussed with Dr Nation about pt with constipation. Senna tabs added
[2020-09-06 08:55] VITALS: BP 154/80
--- NOTE | 2020-09-06 14:17 | NUR ---
АНДРЕЙ received a vm from pt's son Bimal Butterfield stating that pt's dpoa is her Bimal Greer and if that is true, he should be able to sign her in. АНДРЕЙ called Bimal Butterfield at [phone]. He restated what he said in the msg. АНДРЕЙ explained to him that it is up to the doctors to determine if pt's can be a decision maker. He said that her was deemed able to assign him as DPOA. АНДРЕЙ explained that is different from being able to be a decision maker for another person. He then said that cognition is "subjective" and perhaps his mom is able to do the same. АНДРЕЙ explained that his mom is not oriented to at min. person or place. So SW is uncomfortable with assigning her a dpoa. Bimal Butterfield said that although pt is not oriented, she can still understand the basics of a dpoa. АНДРЕЙ explained that due to her interactions with the pt she is uncomfortable with that idea as she can not say that pt has the cognitive ability to assign a dpoa. He said that he may not take guardianship and may allow the state to take guardianship of pt. He said that it would cost him a thousands of dollars and a lot of time to be guardian, and he does not see the benefit of him pursuing guardianship of pt. АНДРЕЙ provided an update to Dr. Nation.
--- NOTE | 2020-09-06 17:39 | NUR ---
0700 ASSUMED CARE OF PATIENT. FOR BREAKFAST PATIENT SITS UP IN GERICHAIR , FEEDS SELF. PATIENT IS TALKATIVE SPEAKING GIBBERISH. STATES "ARTERIALS ARE SHRINKING". MEDICATION TAKEN CRUSHED IN PUDDING, TAKES WITHOUT DIFFICULTY. PATIENT ABRUPTLY IN A LOUD VOICE ATATES "I HAVE TO GO TO THE BATHROOM, HURRY HURRY". BLACK BELT TAKES PATIENT TO BR, UNSTEADY ON FEET. NO VOID AT THAT TIME. PATIENT BACK TO CHAIR AND OUT TO DAYROOM.
[2020-09-06 19:59] VITALS: BP 123/68
--- NOTE | 2020-09-07 02:30 | NUR ---
ASSESSMENT: PT ALERT TO SELF, CONFUSED AND NOT EASILY REORIENT TO PLACE AND TIME. SPOUSE CALLED EARLIER DURING THE NIGHT TO SPEAK WITH PT, PT NOT ORIENT ENOUGH TO CARRY ON A CONVERSATION. PT'S CODE NUMBER WAS GIVEN TO THE SPOUSE WHICH WAS ALSO HOSPITALIZED. NOT SURE IF THE SPOUSE IS STILL A PT HERE OR NOT. PT SITTING IN THE LIZZ CHAIR DURING THE NIGHT. DID TAKE ALL OF HER MEDICATIONS WHICH WAS CRUSHED AND PLACED IN VANILLA PUDDING. PT ATTEMPTED TO BITE THE SPOON WHILE TAKING MEDS. PT'S SPEAK WAS INCOMPREHENSIBLE BUT IT SEEMS LIKE PT WAS MENTIONING SOMETHING ABOUT A CIGARETTE. WAS NOT COMBATIVE WITH CARE THIS SHIFT. DOES NOT FOLLOW SIMPLE COMMANDS. GETS IM ROCEPHIN FOR +UTI. SLOW PROGRESS TOWARDS DC GOALS. WILL CONTINUE TO MONITOR.
--- NOTE | 2020-09-07 06:45 | NUR ---
ASSESSMENT: PT ACQUIRED JEVON SKIN TEARS ON FORE ARM. THIS WAS DONE FROM SNATCHING AWAY FOR THE TECHS WHEN THEY WERE IN THE PROCESS OF TRYING TO CHANGE HER BRIEF. OPSITE APPLIED TO BOTH SITES.
--- NOTE | 2020-09-07 14:01 | NUR ---
PATIENT HAS BEEN UP IN [facility], AND OUT ON THE UNIT. SHE IS A&O X 1, FOGETFUL, AND CONFUSED. PATIENT REQUIRES ASSIST OF STAFF TO COMPLETE ADL. PATIENT TOOK ALL MORNING MEDICATION CRUSHED IN PUDDING WITHOUT DIFFICULTY. SHE IS EATING MEALS, AND DRINKING FLUID FAIRLY, FED BY STAFF. PATIENT IS NOT ABLE TO APPROPRIATELY RESPOND TO ASSESSMENT QUESTIONS DUE TO COGNITIVE IMPAIRMENT. CLEAR DRESSING IN PLACE TO JEVON UPPER ARM. NO AGITATION OR AGGRESSIVE BEHAVIOR NOTED AT THIS TIME, NO YELLING OR IRRITABLE BEHAVIOR NOTED. AFFECT IS FLAT, MOOD IS CALM. NO SIGN OF ACUTE DISTRESS NOTED AT THIS TIME, WILL MONITOR FOR SAFETY.
--- NOTE | 2020-09-07 15:41 | NUR ---
АНДРЕЙ spoke to Samantha GustafsonBetsy with [place] [facility] [phone] off/[phone] cell who stated she doesn't have a copy of the DPOA. She suggested SW contact [facility] [phone]. Patient was previously there. SW left a voice message with the medical records dept and the SW asking for a return phone call. SW team will remain available.
[2020-09-07 19:38] VITALS: BP 159/78
--- NOTE | 2020-09-08 04:56 | NUR ---
Alert and orientated to name only. When asked how she was doing she stated. "Fine. I don't know why I keep saying fine when I know I'm not fine." Denies SI/HI. Sitting calmly in day room, took meds with yogurt. Breath sounds clear. Reg HR auscultated 100-104. Color pale pink with brisk capillary refill and palpable peripheral pulses. No edema noted. Incontinent of yellow urine X2. Active bowel sounds over soft, flat abdomen. Milk of magnesia given PO d/t no recent documented BM. Currently sleeping in bed without s/o distress.
[2020-09-08 09:38] VITALS: BP 152/55
[2020-09-08 10:37] VITALS: BP 152/55
--- NOTE | 2020-09-08 11:03 | NUR ---
Assumed pt care at 0700. Pt was oriented to self. Assessments completed, vss. pt took meds crushed with pudding, no difficulty noted. Pt is sleeping but arousable. Ambulates with a Abbey chair. Denies si/hi, denies pain at this time. calm and co-operative with care. There is no sign of acute distress noted at this time. Will continue to monitor pt.
--- NOTE | 2020-09-08 11:14 | NUR ---
АНДРЕЙ received a call from Caroline Parks of [facility]. АНДРЕЙ returned call only for a recording to say "we're sorry. Your call cannot be completed at this time." АНДРЕЙ contacted their [place] location and left a msg for their SW. SW team will continue to follow pt during her stay on this unit.
[2020-09-08 19:45] VITALS: BP 140/62
--- NOTE | 2020-09-09 00:28 | NUR ---
Alert to name only, calling herself Aminah. Denies SI/HI, no speech/behavior suggestive of SI/HI. Calm, cooperative and compliant with meds, took crushed in yogurt. Ate 2 containers of yogurt without diff being fed. Resistant to standing, stood with assist X 2. Breath sounds clear. Reg HR auscultated. Color pink with brisk capillary refill and palpable peripheral pulses. Incontinent of large amt yellow urine. Active bowel sounds over soft, flat abdomen. Milk of magnesia given PO d/t no stool in 10 days. Currently sleeping without s/o distress.
--- NOTE | 2020-09-09 03:46 | NUR ---
Awake and alert. Placed in gerichair by senior support analyst and brought to dining room. Fed 2 containers of yogurt and 120 cc prune juice. States she is full. No s/o distress.
[2020-09-09 06:47] LABS: HEMOGLOBIN 11.4 gm/dL (12.0-15.0); MCH 30.5 pg (26.0-34.0); MCHC 32.5 g/dL (28.0-37.0); MCV 93.6 fL (80.0-100.0); RBC 3.74 mil/uL (4.20-5.00); RDW 14.4 % (10.5-14.5); WBC 5.9 thou/uL (4.0-11.0)
[2020-09-09 07:04] LABS: CALCIUM 10.2 mg/dL (8.5-10.1); CREATININE 0.9 mg/dL (0.6-1.0); POTASSIUM 4.2 mmol/L (3.5-5.1)
[2020-09-09 09:15] VITALS: BP 146/75
--- NOTE | 2020-09-09 09:28 | NUR ---
Assumed pt care at 0700. Pt was oriented to self AND CONFUSED. Assessments completed, vss. PT TOOK MEDS CRUSHED WITH YOGURT. THere is no sign of si/hi noted. no c/o pain at this time. Ambulates with a w/c. PT HAD 1 OCCURENCE OF INCONTINENT, VOID IN THE tOILET, HAD 1 OCCURENCE OF BOWEL MOVEMENT. CALM AND CO-OPERATIVE WITH CARE. Pt was assisted with feeding. No sign acute distress noted upon assessments. Will continue to monitor.
[2020-09-09 10:09] VITALS: BP 146/75
--- NOTE | 2020-09-09 10:48 | NUR ---
RT Progress Note- Mona's participation with recreation therapy has been minimal since her admission. Mona has been present during milieu activities and groups, but does not actively engage. She presents agitated at times, but does not become combative with RT staff or fellow pts. This agitation is usually associated with disoriented thoughts. Staff will continue to encourage participation as she tolerates.
--- NOTE | 2020-09-09 14:09 | NUR ---
Yesterday АНДРЕЙ spoke with Samantha ([facility]) who said that pt's son can file guardianship and then relinquish the responsibility to the state; she said that would be a quicker guardianship than if the hospital or the state file for guardianship. She said she planned to speak with the son today. Samantha contacted АНДРЕЙ and said she spoke with Bimal Butterfield who decided he did not want to be involved at all with pt's guardianship. Samantha said she too explained to Bimal that means he will have no say in anything she does; Bimal Butterfield said he would like his mom at [place]. Samantha said she too also explained that he will not have access to any of her funds. Samantha asked if АНДРЕЙ was able to obtain DPOA docs and she said she was not. She said if АНДРЕЙ is not able to do so by the end of business, she will go to the facility on Saturday and get the document. АНДРЕЙ contacted Caroline who said that she was in a meeting. She said she and the medical records team and she have been very busy; they have not been able to open the email. АНДРЕЙ explained that it is pertinent that she reviews that document as a decision needs to be made how to proceed. She also mentioned that pt's is currently at one of their locations so it would be beneficial even to [place] for there to be a plan. She said after the meeting she would call АНДРЕЙ back. АНДРЕЙ had not received a call so she contacted Caroline and was sent to . АНДРЕЙ left a msg. АНДРЕЙ then called back and asked for medical records. АНДРЕЙ spoke to Sherrell in who reviewed the document and verbally told АНДРЕЙ that the only name listed was "Bimal Ashton" with pt's and 's address on it. She said the first agent and second agent were marked out. АНДРЕЙ asked for a copy of this document and was told by Sherrell that she will review this with her transmitter supervisor and ask if she can send without written consent from pt. АНДРЕЙ confirmed with [facility] spray unit feeder that no response has been garnered from her request to [facility]. АНДРЕЙ team will continue to follow pt during her stay on this unit.
[2020-09-09 19:31] VITALS: BP 149/75
--- NOTE | 2020-09-09 23:06 | NUR ---
Alert to name only. Becomes agitated and using profanity when disturbed, quiet and appears to sleep when not disturbed. Denies SI/HI, no speech/behavior suggestive of SI/HI. Breath sounds clear. Reg HR auscultated. Color pink with brisk capillary refill and palpable peripheral pulses. Incontinent of large amt yellow urine per brief. Active bowel sounds over soft, flat abdomen. Ate container of yogurt and 120cc orange juice for HS snack--needed to be fed. Clear dressings over skin tears on forearms, no s/o infection. Currently sleeping without s/o distress.
[2020-09-10 08:25] VITALS: BP 150/77
[2020-09-10 12:38] VITALS: BP 150/77
--- NOTE | 2020-09-10 13:37 | NUR ---
Assumed pt care at 0700. Pt was oriented to self and confused. Calm and co-operative with care. Took meds crushed with pudding. No sign of acute distress upon assessments, No c/o of pain at this time. Ambulates with a Abbey chair. Pt son visited. will continue to monitor.
[2020-09-10 19:55] VITALS: BP 129/104
--- NOTE | 2020-09-10 23:11 | NUR ---
PT TALKING TO SELF IN DAY ROOM, FIDGETING WITH ALL OBJECTS WITHIN REACH. POOR EYE CONTACT. PT COMPLIANT WITH MEDS AND PUDDING. PT VERY RESISTIVE TO ADL CARES. PT IS INCONTINENT AT TIMES. PT SCRATCHING GRABBING ATTEMPTING TO BITE OR LICK WHEN STAFF CHANGING PTS CLOTHES OR ASSIST WITH BATHROOM. BED ALARM ON.
[2020-09-11 09:37] VITALS: BP 151/73
[2020-09-11 11:50] VITALS: BP 151/73
--- NOTE | 2020-09-11 12:00 | NUR ---
ASSUMED CARE AT 0700 THIS MORNING. PT. UP, DRESSED AND ON THE UNIT. SHE HAS BEEN LESS IRRITABLE THAN IN THE PAST DAYS. SHE ALLOWED HER VITALS TO BE TAKEN WITHOUT YELLING AND FIGHTING. HAD A VISITOR DURING VISITATION. SHE REMAINED APPROPRIATE DURING THIS TIIME. SHE TOOK HER MORNING MEDICATIONS CRUSHED AND IN PUDDING THIS MORNING WITHOUT PROBLEMS NOTED. HER B/P WAS 151/73 TODAY. SHE TOOD HER MORNING MEDICATIONS CRUSHED IN PUDDING WITHOUT PROBLEMS NOTED. WILL CONTINUE TO MONITOR.
[2020-09-11 19:10] VITALS: BP 152/94
[2020-09-11 20:30] VITALS: BP 152/94
--- NOTE | 2020-09-12 02:40 | NUR ---
PATIENT WAS SITTING UP IN DINING ROOM EARLIER THIS EVENING AND WAS TALKING WITH HERSELF AND FIDDLING WITH BLANKETS ON THE TABLE. SHE WAS CALM. SHE HAD HS SNACK OF ICECREAM. SHE BECAME SLEEPY AFTER ICECREAM AND REFUSED ALL HER MEDS AT HS. ATTEMPTED A COUPLE OF TIMES BUT PATIENT WOULD PUSH THE CRUSHED MEDS IN PUDDING AWAY. PT STATES SHE'S TIRED. PATIENT ASSISTED TO BED AND INCONTINENCE CARES WERE DONE. PATIENT HAS BEEN SLEEPING SINCE. PATIENT A/OX 1. NO SIGN OF SI/HI. SHE OCCASIONALLY SEE'S PEOPLE AND TALKS WITH THEM. BED IN LOW POSTION AND BED ALARM IS ON. CONTINUING TO MONITOR.
[2020-09-12 05:48] LABS: CALCIUM 9.5 mg/dL (8.5-10.1); CREATININE 0.8 mg/dL (0.6-1.0); POTASSIUM 3.9 mmol/L (3.5-5.1)
[2020-09-12 10:27] VITALS: BP 154/87
--- NOTE | 2020-09-12 13:26 | NUR ---
АНДРЕЙ team contacted Samantha with [facility] to provide to her an update. АНДРЕЙ asked her if it is possible for her to file for guardianship or ask for a guardian ad chaparrita to intercede as pt does not have a safe d/c plan at this time. She said she will see what she can do. She asked АНДРЕЙ to provide to her updates on pt and fax them to [phone]. АНДРЕЙ did so. АНДРЕЙ team will continue to follow pt during her stay on this unit.
[2020-09-12 13:45] VITALS: BP 154/87
--- NOTE | 2020-09-12 17:09 | NUR ---
Assumed pt care at 0700. pt was oriented to self and confused. Assessments completed,vss. pt took meds crushed with pudding. ambulates with a kathya chair. NO sign of acute distress noted upon assessments. No sign or behavior of si/hi noted. No c/o pain. pt got agitated and irritable at noon, but was redirectable. Will continue to monitor.
[2020-09-12 19:48] VITALS: BP 155/79
[2020-09-12 20:15] VITALS: BP 155/79
--- NOTE | 2020-09-13 02:05 | NUR ---
PATIENT SAT UP IN LIZZ CHAIR WITH CHAIR ALARM AND CHAIR LOCKED TONIGHT UNTIL SHE WENT TO BED. SHE WAS CALM AND COOPERATIVE. SHE SMILED AND SPOKE NONSENSICAL CONVERSATIONS. SHE TOOK HER MEDS CRUSHED IN PUDDING AND ATE ALL OF THE REST OF THE PUDDING STATING AFTER EACH BITE, UM THIS IS GOOD. SHE DRANK 2 LARGE STYROFOAM CUPS OF ICE WATER WITH A STRAW. SHE HAS BEEN SLEEPING IN BED. HER VITALS STABLE. RECHECKED TEMP AND WAS 98.0. DENIES PAIN. NO SIGNS OF SI/HI NOTED. BED IN LOW POSITION AND BED ALARM IS ON. ROUTINE ROUNDS TO ASSESS SAFETY AND STATUS OF PATIENT.
[2020-09-13 09:42] VITALS: BP 148/67
--- NOTE | 2020-09-13 09:47 | NUR ---
0700 ASSUMED CARE OF PATIENT, PATIENT IN GERICHAIR AT THAT TIME. PATIENT AWAKE AND ALERT, ORIENTED TO SELF. VS 148/67, 63, 17, 96.9, 98%. PATIENT ATE 100% OF BREAKFAST WITH ASSISTANCE. MEDICATION TAKEN CRUSHED IN PUDDING. JUST BEFORE GROUP PATIENT ASKS TO GO TO BR. [facility] UP TO BR X 1-2 ASSIST, SMEAR NOTED AT THAT TIME. PATIENT AMB WITH ASSIST X1 TO DAYROOM AND INTO GERICHAIR, PRESENT IN GROUP THIS AM. PATIENT MENTIONS HER AND NEEDING TO LOOK FOR HIM. PATIENT CONFUSED, CALM AND COOPERATIVE.
--- NOTE | 2020-09-13 11:31 | NUR ---
1015 FAST FOOD RESTAURANT MANAGER RECIEVED CALL FROM ADELAIDA'S SPOUSE. CORDLESS PHONE TAKEN TO PATIENT. PATIENT TAKES PHONE, ASKS WHAT EAR IS HE ON. PATIENT SMILES SITS BACK CROSSES LEGS AND TALKS TO HER .
[2020-09-13 19:35] VITALS: BP 164/71
--- NOTE | 2020-09-14 05:24 | NUR ---
09-13-20 CARE TRANSFERRED 1899 OBSERVED PT SITTING IN RECLINER IN DAYROOM. LATER PT AAOX2, VSS, RR EVEN AND NONLABORED. PT DENIES SI/HI AND PAIN. PT PRESENTS IRRITABLE BUT HAS REMAINED CALM AND COOPERATIVE. DURING MEDICATION ADMIN PT WAS RESTINANCE BUT DID COMPLY EVENTUAL. LATER RECEIVED REPORT THAT WHEN ASSISTING PT TO BED AND CHANGING BRIEF THAT PT BECAME COMBATIVE, PT BED WAS ADJUSTED FOR COMFORT, PT DID PRESENT IRRITATED. LATER NOTED PT RESTING WITH EYES CLOSED. ZERO S/S OF ACUTE DISTRESS NOTED, PT WILL CONTINUE TO BE MONITOR PER [facility] PROTOCOL.
--- NOTE | 2020-09-14 10:49 | NUR ---
АНДРЕЙ contacted Samantha with [facility] to receive an update. Samantha said that she and her show design supervisor talked, and she has been approved to file for guardianship of pt; opposed to the hospital doing so. She said that she will email АНДРЕЙ a form that contains info she needs Dr. Nation to put in a letter. АНДРЕЙ relayed this information to both the [facility] director and Dr. Nation, АНДРЕЙ team will continue to follow pt during her stay on this unit.
[2020-09-14 19:27] VITALS: BP 153/83
--- NOTE | 2020-09-15 05:58 | NUR ---
09-14-20 CARE TRANSFERRED 0 OBSERVED PT SITTING IN RECLINER IN DAY ROOM. LATER PT AAOX1, VSS, RR EVEN AND NONLABORED ON RA. PT DENIES SI/HI AND PAIN, PT CONFUSED BUT HAS REMAINED CALM AND COOPERATIVE. DURING MEDICATION ADMIN PT WAS RESISTANCE TO TAKING MEDICATION, PT DID COMPLY. LATER NOTED PT RESTING WITH EYES CLOSED IN BED. ZERO S/S OF ACUTE DISTRESS NOTED, PT WILL CONTINUE TO BE MONITOR PER [facility] PROTOCOL.
[2020-09-15 07:56] VITALS: BP 150/79
--- NOTE | 2020-09-15 14:05 | NUR ---
RT Progress Note- Mona has continued to be present in the milieu and most recreation therapy groups each day. Mona also continues to ramble about off topic ideas, but has not shown quite the intensity of agitation during these times as in previous weeks. She has been able to passively engage in groups, and even participated in a music group in which she was able to identify song titles. INTERNATIONAL FIRST OFFICER will continue to encourage progress and participation.
[2020-09-15 19:37] VITALS: BP 145/61
--- NOTE | 2020-09-16 04:14 | NUR ---
Assumed care on 09/15/20 @ 19:15, patient was transferred to bed and meds given @ 21:30, cooperated with medication administration, vss, denies SI/HI, not able to verbalize other mental health assessment questions. HRRR, Lungs cta bilat, abd N x 4q. Will continue to monitor as per unit protocol for safety and comfort.
[2020-09-16 09:36] VITALS: BP 105/48
--- NOTE | 2020-09-16 12:42 | NUR ---
АНДРЕЙ received DPOA document to fax from [facility]. АНДРЕЙ reviewed the document and saw that it only has Bimal Ashton presumed to be Sr. not Jr. on the document. АНДРЕЙ notified both [facility] director and Dr. Nation. SW team will continue to follow pt during her stay on this unit.
--- NOTE | 2020-09-16 17:16 | NUR ---
PT ASSESSED AT START OF SHIFT. UP IN CHAIR W/ BATHROOM BREAKS. NO BM THIS SHIFT. EATING AND DRINKING FAIR. REFUSED MEDS THIS AM AND BECAME COMBATIVE. IM MED GIVEN PER ORDERS. MORE COOPERATIVE LATER.
[2020-09-16 19:35] VITALS: BP 177/78
[2020-09-17 02:00] VITALS: BP 110/51
--- NOTE | 2020-09-17 04:00 | NUR ---
Pt without any signs of agitation. She took all her meds crushed in yoghurt-no signs of refusal.Slept well.
[2020-09-17 09:25] VITALS: BP 137/72
--- NOTE | 2020-09-17 10:42 | NUR ---
Alert and orientated to name only. Confused speech. Happy and interactive in day room eating breakfast with assistance. Became agitated and using profanity,deragatory statements to care providers when brought to room for assessment. Pinching, attempting to kick and hit. Settled down once left alone. Denies SI/HI. Scoots self around in [facility], refused to get up. Lab davin in place for safety. Breath sounds clear. Reg HR auscultated. Color pink with brisk capillary refill and palpable peripheral pulses. Incontinent of yellow urine per brief. Active bowel sounds over soft, flat abdomen. Miralax given this AM, will give milk of magnesia with lunch d/t no documented BM in several days. Skin tears to forearms bilaterally, covered in transparent dressings. [facility] without s/o distress.
[2020-09-17 18:10] VITALS: BP 158/88
--- NOTE | 2020-09-17 19:07 | NUR ---
Pts brief changed and placed in bed at approximately 1800, bed alarm activated and side rails up X4. Pt had been incontinent of yellow urine. At approximately 1810 bed alarmed and CROP ADJUSTER Lexis Shepherd responded. As she entered room she saw pt standing at foot of bed calling for her Mother. Pt's knees buckled and she was able to assist fall. Pt grazed knee on side of bed. No s/o injury. VS as documented. ELIZABETH Castillo notified by phone by Juan Sharp RN. Nursing chimney construction supervisor notifed. Attempted to contact at but he did not answer phone and mailbox was full so was unable to leave [facility]. Currently sleeping without s/o distress.
[2020-09-17 19:10] VITALS: BP 154/76
[2020-09-17 19:56] VITALS: BP 146/55
[2020-09-18] VITALS (8 sets, daily range): BP systolic 168–205; BP diastolic 72–98
--- NOTE | 2020-09-18 05:43 | NUR ---
09-17-20 CARE TRANSFERRED 1914. LATER OBSERVED PT RESTING WITH EYES CLOSED IN BED R.SIDE, PT PRESENTS DROWSY, AAOX1, VSS, RR EVEN AND NONLABORED ON RA. NO S/S OF PAIN NOTED, OBSERVED NO SI/HI BEHAVIORS. LATER WHILE CHANGING PT, PT REPORTED HER LE HURT, RETURNED WITH ADMIN AND PT REFUSED TAKING MEDICATION, NOTED PT WAS RESTING SUPINE WITH EYES CLOSED, BUT EASILY AROUSE BY VOICE, PT PRESENTS DROWSY. ZERO S/S OF ACUTE DISTRESS NOTED, PT WILL CONTINUE TO BE MONITOR PER [facility] PROTOCOL.
--- NOTE | 2020-09-18 09:13 | NUR ---
PT SITTING IN RECLINER AFTER BREAKFAST PT FELL ASLEEP. PT TOOK MEDS CRUSHED THIS AM. PT WAS BITTING ON THE THE BLACK SPOON. PT ALSO WAS OFFERED WATER AND WAS TRYING TO BITE DOWN ON THE STYROFOAM CUP. TOLD PT NOT TO BITE CUP AND SPOON. PT DID TAKE A BIG BITE FOR MEDS.
--- NOTE | 2020-09-18 11:00 | NUR ---
DR. SWANSON WANTING BP/PULSE RECHECKED. PT BP MANUAL TO RT ARM 185/90, PULSE 92. PT BP THIS AM WITH MACHINE WAS 193/81, PULSE 127. PT SON HERE TO VISIT AND PT SLEEPING IN CHAIR.
--- NOTE | 2020-09-18 15:07 | NUR ---
PT PUT BACK TO BED X2 PERSONS. PT MOANING WHEN GETTING BACK TO BED. PT HAS THICKEN SALIVA IN MOUTH AND SPITTING. PT HEAD ADJUSTED DOWN INSTEAD OF BEING BACK. PT WAS INCON. OF URINE LARGE AMT WITH STRONG SMELL URINE. PT BRIEF TAKEN OFF AND NOT REPLACED WHILE IN BED. PT BED ALARM ON LOW SETTING. PT OFFERED APPLE JUICE, DID NOT RESPOND TO OFFER. PT MOUTH WIPED INSIDE WITH ORAL SPONGE. PT KEPT LIPS TIGHT WHEN OFFERING MOUTH SPONGE.
--- NOTE | 2020-09-18 17:20 | NUR ---
THE AIDES WAS TRYING TO AWAKE PT AND SHE DIDN'T RESPOND TO VERBAL STIMULI. VS TAKEN AND BP ON MACHINE WAS 210/180. VS TAKEN MANUAL 170/72, [address] SWANSON CALLED AND ORDERS FOR UA OBTAINED.
--- NOTE | 2020-09-18 18:14 | NUR ---
OBTAINED A UA VIA STRAIGHT CATH. DR. SWANSON WANTS TO KNOW RESULTS. PT WAS GRABBING AND PINCHING NURSE WHEN TRYING TO HOLD LEGS UP. PT YELLING AND SAID I NEED TO GET OUT OF HERE.
[2020-09-18 18:28] LABS: URINE BILIRUBIN NEGATIVE (Negative); URINE BLOOD NEGATIVE (Negative); URINE CLARITY CLEAR; URINE COLOR YELLOW; URINE GLUCOSE-RANDOM* NEGATIVE (Negative); URINE KETONES NEGATIVE (Negative); URINE LEUKOCYTES-REFLEX NEGATIVE (Negative); URINE NITRITE-REFLEX NEGATIVE (Negative); URINE PROTEIN (DIPSTICK) NEGATIVE (Negative); URINE SPECIFIC GRAVITY 1.015 (1.005-1.035); URINE UROBILINOGEN 0.2 E.U./dl (0.2-1.0)
--- NOTE | 2020-09-19 02:50 | NUR ---
09-19-20 CARE TRANSFERRED 1899. RECEIVED REPORT THAT PT B/P AND PULSE ELEVATED. PT AAOX1, MANUAL B/P 195/98, P 96, RR EVEN AND NONLABORED ON RA. PT HAS BEEN NONVERBAL, OBSERVED NO S/S OF PAIN AND NO SI/HI BEHAVIORS. NO S/S OF ACUTE DISTRESS, PT WILL CONTINUE TO BE MONITOR PER [facility] PROTOCOL.
[2020-09-19 05:43] LABS: HEMATOCRIT 37.1 % (37.0-47.0); HEMOGLOBIN 12.1 gm/dL (12.0-15.0); MCH 30.2 pg (26.0-34.0); MCHC 32.6 g/dL (28.0-37.0); MCV 92.8 fL (80.0-100.0); RDW 14.2 % (10.5-14.5); WBC 14.8 thou/uL (4.0-11.0)
[2020-09-19 05:54] LABS: CALCIUM 9.5 mg/dL (8.5-10.1); CREATININE 0.9 mg/dL (0.6-1.0); POTASSIUM 3.8 mmol/L (3.5-5.1)
[2020-09-19 09:27] VITALS: BP 170/70
--- NOTE | 2020-09-19 12:14 | NUR ---
АНДРЕЙ contacted Samantha to get an update on pt's guardianship status and provide an update. No answer. АНДРЕЙ left a msg. SW team will continue to follow pt during her stay on this unit.
--- NOTE | 2020-09-19 18:47 | NUR ---
0700 ASSUMED CARE OF PATIENT, PATIENT SITTING IN LIZZ CHAIR AT THAT TIME. PATIENT SLEEPING IN CHAIR AND WHISPERS WHEN NAME CALLED. DOES NOT WAKE UP FOR BREAKFAST OR LUNCH TODAY. 1/2 OF AM MEDICATIONS GIVEN CRUSHED IN PUDDING. DR ANDERSON HERE TO SEE PATIENT. ORDERS FOR IV FLUIDS RECIEVED IV 20 G STARTED TO LEFT FA. PATIENT OUT TO DAY ROOM AND FLUIDS AND IV ANTIBIOTIC STARTED. PATIENT AWAKE AND ALERT SITTING UP TALKING ON PHONE TO . PATIENT CALM AT THIS TIME.
[2020-09-19 20:07] VITALS: BP 160/56
[2020-09-19 20:20] VITALS: BP 160/56
--- NOTE | 2020-09-20 02:54 | NUR ---
PATIENT SAT UP IN LIZZ CHAIR SLEEPING OFF AND ON IN DINING ROOM NORMAL SALINE 1000ML WAS FINISHING INFUSION AT 250CC/HR.. SHE HAS SALINE LOCK WITH 20G IV IN LEFT FOREARM THAT IS OPEN AND PATENT AND NSOI. PATIENT DID TAKE HER MEDS CRUSHED IN ICECREAM. SHE DID EAT THE WHOLE CUP OF ICE CREAM. SHE IS A/0X1. VSS. NO SIGNS OF SI/HI/AVH. PATIENT ASSISTED TO BED AND ROUTINE INCONTINENCE CARES DONE. BED IN LOW POSITION AND BED ALARM IS ON. ROUTINE ROUNDS TO ASSESS SAFETY AND STATUS OF PATIENT. PATIENT CALM AND COOPERATIVE.
[2020-09-20 09:05] VITALS: BP 176/67
--- NOTE | 2020-09-20 12:32 | NUR ---
АНДРЕЙ again contacted Samantha to receive and give an update. No answer. АНДРЕЙ left a msg. АНДРЕЙ also sent her an email asking for a call back. АНДРЕЙ team will continue to follow pt during her stay on this unit.
--- NOTE | 2020-09-20 17:21 | NUR ---
0700 ASSUMED CARE OF PATIENT, PATIENT SITTING IN GERICHAIR SLEEPING. PATIENT AWAKE FOR BREAKFAST EATS VERY LITTLE. MEDICATION TAKEN CRUSHED IN PUDDING. PATIENT ASLEEP MOST OF THE TIME IN LIZZ CHAIR, REPOSITIONED IN CHAIR FOR COMFORT. PATIENT MOANS IN PAIN WHEN MOVED. PATIENT TAKEN SIPS OF H2O IN AM WITH DECREASED INTAKE THIS AFTERNOON. PATIENT TO BED AFTER LUNCH AND BRIEF CHANGED AND POSITIONED TO RIGHT SIDE. PATIENT MOANING WITH MOVEMENT. PATIENT DOES OPEN EYES WHEN MOVED OR NAME CALLED. MUMBLES AT TIMES. MOUTH MOISENED WITH TOOTHLETS. UNABLE TO GIVE MEDICATION PATIENT SLEEPING AND DOES NOT STAY AWAKE FOR LONG. DR ARITA NOTIFIED.
[2020-09-20 19:43] VITALS: BP 154/55
[2020-09-21 00:49] VITALS: BP 154/55
--- NOTE | 2020-09-21 01:01 | NUR ---
Assumed care on 09/20/20 @1915, in bed on left side, opens eyes and speaks in a soft voice when spoken to. New orders for comfort care, Morphine Sulfate, Lorazepam and atrovent all sublingal. Heart beat noted with a regular rate, Lung sounds diminished bilat, regular rhythm noted. ABD sounds noted. Lublingal comfort meds provided @ 20:45. Follow up assessment, noted to be quiet and without signs and symptoms of pain or anxiety. Turned q2 hours, has not wet brief the first 6 hours of care. Oral care provided with medications and turns. Bed alarm set, 3 bed rails up for safety. Will continue to monitor as per unit protocol, and continue repositioning for skin integrity and comfort.
[2020-09-21 08:00] VITALS: BP 163/55
[2020-09-21 09:30] VITALS: BP 163/55
--- NOTE | 2020-09-21 10:10 | NUR ---
PATIENT IN BED AT CHANGE OF SHIFT. STAFF ATTEMPTING TO CHANGE PATIENT DUE TO INCONTINENCE BUT MET WITH RESISTANCE - AFTERWARDS ASSISTED TO LIZZ CHAIR FOR BREAKFAST. PATIENT ALERT TO SELF - POOR CONCEPT OF UNDERSTANDING DUE TO COGNITIVE IMPAIRMENT. ATE 25 PERCENT OF MEAL - NO MEDICATIONS NEEDED THIS MORNING. SITTING IN DINING TEMPLE - HEART RATE STRONG AND STEADY, SKIN INTACT AND LUNGS SLIGHTLY DIMINISHED WHEN AUSCULTATED.
--- NOTE | 2020-09-21 11:59 | NUR ---
АНДРЕЙ was notified in tx team that pt has been determined to need comfort care because she is now considered imminent status. АНДРЕЙ faxed referrals to both hospice and [facility] for pt. SW team will continue to follow pt during her stay on this unit.
[2020-09-21 19:33] VITALS: BP 165/98
[2020-09-21 21:55] VITALS: BP 165/98
--- NOTE | 2020-09-21 22:15 | NUR ---
Assumed care on 09/21/20 @ 19:15, reclined in kathya chair in the day room, eyes closed respirations shallow and even. Opens eyes when name is spoken. Speaks but speach is confused and rapid, nonsense words. Transferred to bed @ 2100, uncooperative with care, grabbing at hands and wrists of staff assisting her. Incontinent care given, positioned for comfort. Heart sounds auscultated with a regular rate. Lung sounds diminished but audible bilat, ABD sounds diminished 4Q. Oral care provided with toothetes. Became agitated when face was washed with warm wash cloth. @ 2130 MS 5mg SL and Lorazepam 0.5mg SL provided. Will continue to monitor q 12 minutes for comfort and safety as per unit protocol.
[2020-09-22 07:30] VITALS: BP 164/79
--- NOTE | 2020-09-22 10:11 | NUR ---
Yesterday, Hospice determined pt was not appropiate for hospice house as she is tolerating things by mouth. They did say however if she had placement, they will come to her home to do hospice care. АНДРЕЙ also received a call from [facility] stating that they are full. АНДРЕЙ yesterday sent a referral to [facility] and spoke to Vanita about pt. She said she would be happy to take pt as her is still receiving skilled services. АНДРЕЙ contacted [facility] this morning to follow-up on the referral sent yesterday. АНДРЕЙ was told that Nancy is out of the office but should return within the hour. АНДРЕЙ left a msg on her . АНДРЕЙ team will continue to follow pt during her stay on this unit.
--- NOTE | 2020-09-22 10:19 | NUR ---
АНДРЕЙ contacted Samantha Robert again on her cell. No answer. АНДРЕЙ left a msg. АНДРЕЙ contacted Samantha's office number. No answer. АНДРЕЙ did not leave a msg. АНДРЕЙ then contacted the [facility] department at [phone] and asked to speak with Samantha's motor vehicle operator road supervisor. АНДРЕЙ was told her motor vehicle operator road supervisor's name is Panchito Faulkner. АНДРЕЙ left a msg on her vm asking for a return call. АНДРЕЙ team will continue to follow pt during her stay on this unit.
--- NOTE | 2020-09-22 19:34 | NUR ---
0700 ASSUMED CARE OF PATIENT, PATIENT IN DAYROOM LYING IN GERICHAIR. PATIENT DID NOT EAT BREAKFAST. PATIENT RESTING WITH EYES CLOSED MOST OF THE DAY. SIPS OF JUICE AND H20 TAKEN WITH USE OF STRAW. PLANT PHYSIOLOGY TEACHER ASSISTED PATIENT WITH DINNER, ATE 40% OF MEAL OPENS EYES AT TIME MUMBLING TO SELF. GIGGLES AT TIMES. PATIENT BACK TO ROOM AND CLEANED UP AND IN BED.
[2020-09-22 19:48] VITALS: BP 196/82
--- NOTE | 2020-09-23 00:57 | NUR ---
TURNED AND REPOSITIONED Q 2HOURS SINCE START OF SHIFT AT 1930-UPON INITIAL REPOSITIONING WAS MILDLY RESISITVE WITH TURNING AND INCONTINENT CARE -DID TAKE SIPS OF H20 AND APPEARED TO FALL ASLEEP SHORTLY AFTER-WHEN REPOSITIONED AT 1200 WAS NOTED TO BE MORE RESTLESS-ACTIVLEY RESISITING STAFF WITH INCONTINE NT CARE-SWEARING AND ATTEMPTED TO STRIKE OUT AT STAFF-YELLS "NO NO THAT IS HORRIBLE WHEN PLACED ON LEFT SIDE. REFUSES SIPS OF H20 OR PUDDING WHEN OFFERED-EYES OPEN WIDE AND APPEARS TO BE RESPONDING TO INTERNAL STIMULI. ATIVAN INTENSOL 0.5MG GIVEN PO PRN FOR RESTLESSNESS,ANXIETY,DID APPEAR TO BE RESTING QUIETLY WITHIN 20 MINUTES OF ADMINISTRATION. WILL CONTINUE TO MONITOR
[2020-09-23 10:34] VITALS: BP 117/96
--- NOTE | 2020-09-23 11:01 | NUR ---
АНДРЕЙ D/C NOTE АНДРЕЙ faxed to [facility], [facility], and [facility] a copy of pt's discharge docs. SW will file these docs in pt's hospital file. No other needs for SW team to address at this time.
[2020-09-23 14:01] VITALS: BP 117/96
--- NOTE | 2020-09-23 14:05 | NUR ---
1400 RESUMMED CARE FROM OVERNIGHT SHIFT THIS AM, PATIENT IN DAY ROOM SITTING QUIET. PATIENT ALERT ORIENTED TO SELF ONLY PATIENT UNABLE TO TELL ME ABOUT SI/HI/AH/VH AT PRESENT. PATIENT IS ON COMFORT CARE PATIENTS ABDOMEN SOFT BOWEL SOUNDS PRESENT. PATIENTS LUNGS CLEAR PATIENT DISCHARGED TO PRISON FOR HOSPICE CARE. I CALLED REPORT AND PATIENT DISCHARGED TO PRISON WITH BELONGINGS.
--- NOTE | 2020-09-25 12:40 | D ---
[facility] [place] [address] DISCHARGE SUMMARY Name: ADELAIDA CARNEY Room #: 525B-B DIS IN M.R.#: [id number] Admission: 08/26/20 Attend Phys: Paulina Nation DO Discharge: 09/23/20 Date of : 38 Report #: [id number] THIS REPORT FOR: cc: Lita Garcia MD, Sara A. MD Kerstein, Andrew H. DO ~ DOC #: [id number] PAULINA Nation DO DATE OF SERVICE: 09/23/2020 INPATIENT PSYCHIATRIC DISCHARGE SUMMARY ATTENDING PSYCHIATRIST: Paulina Nation DO BUSINESS INTELLIGENCE ETL DEVELOPER: José Luis Gilman MD DISCHARGE DIAGNOSES: Major neurocognitive disorder, likely due to Alzheimer's disease with behavioral disturbance. Please note the patient is end-stage, requiring hospice care. ADDITIONAL DIAGNOSES: Recent fever, leukocytosis, given empiric antibiotics and IV fluids. Acute kidney injury, cachexia, hypertension, failure to thrive, chronic constipation, history of substance use disorder for alcohol at least moderate degree with complicated withdrawal. The patient is being discharged to [facility] for [facility] care as well as hospice care. The patient was not discharged on any formal medications due to the role of hospice. She had previously been on Roxanol p.r.n. as well as Ativan and atropine p.r.n. and comfort feedings. The patient is essentially bedridden. LABORATORY DATA: This admission; most recent CBC on 09/19/2020, white count 14.8, H and H 12.1 and 37.1, platelet count 190. Chemistry: Sodium 144, potassium 3.8, chloride 108, bicarbonate 27, anion gap 9, BUN 22, creatinine 0.9, estimated GFR 60, glucose 109, calcium 9.5. Urinalysis, pH was 8.5, otherwise normal on 09/18/2020. Toxicology, had been treating with Depakote with blood level of 75 on 09/09/2020, but then I discontinued the Depakote. COVID-19 PCR serology was negative at discharge. Syphillis serology nonreactive. HIV 1 and 2 was nonreactive. IMAGING: This admission, chest x-ray on 09/19/2020 showed hyperinflation with bibasilar atelectasis. KUB on 09/04/2020 just showed constipation in the bowel. She had a prior chest x-ray on 09/04/2020 that showed no acute cardiopulmonary process. REASON FOR ADMISSION: An 80-year-old female brought to [address] [address] DISCHARGE SUMMARY Name: ADELAIDA CARNEY Sriram Room #: 525B-B [facility] IN ..#: [id number] Admission: 08/26/20 Attend Phys: Paulina Nation, Discharge: 09/23/20 Date of : 38 Report #: [id number] [facility] from her home, lives only with her , admitted to our facility for a fall. HOSPITAL COURSE: The patient was admitted to the Geriatric Psychiatry Unit, started on Seroquel regimen titrated as well as Depakote. We had some instances of poor intake, needing IV fluids. E. coli urinary tract infection was detected. Unfortunately, the patient has had advanced dementia, was having quite paranoid thoughts, behavior for some time. She has no viable surrogate decision maker, which delayed disposition. Given that she evolved into a terminal kind of case, mcfp her was placed at after he was discharged from the medical side of [facility] accepted her eventually. PHYSICAL EXAMINATION: VITAL SIGNS: On day of discharge, temperature 37.1, pulse 79, respirations 18, BP 117/96, O2 sat 96%. MUSCULOSKELETAL: bedridden, unkempt, cachectic and ambulatory. MENTAL STATUS EXAMINATION: This is a well-developed, ill-appearing female appearing older than stated age. Attention impaired. Concentration impaired. Speech fluent, but nonsensical. No psychomotor agitation or psychomotor retardation. Thought process nonlinear. Thought content, bizarre comments. Unable to assess for suicidality, homicidality, auditory, visual, or tactile hallucinations. Mood and affect were congruent, appearing happy. Insight and judgment grossly impaired. Fund of knowledge is grossly diminished. Prognosis is terminal. She has been eating sparsely and once her appetite seizes, expecting in the next several weeks to a month or so. DO CHRISTIAN Hall/MAULIK/KODY <ELECTRONICALLY SIGNED> By: Paulina Nation DO 09/25/20 [id number] Paulina Nation DO /nt
== END 2020-09-23 09:28 | disposition hospice, inpatient (51) | DRG 56 ==
LOC: SBH 03:37 → EROBS 03:37 → SBH 03:37
PROVIDERS: Hospitalist; Internal Medicine; ADMIT Psychiatry & Neurology Psychiatry; ATTEND Psychiatry & Neurology Psychiatry
DX: G30.9 Alzheimer's disease, unspecified (principal); F01.51 Vascular dementia, unspecified severity, with behavioral disturbance; E43 Unspecified severe protein-calorie malnutrition; N17.9 Acute kidney failure, unspecified; F02.81 Dementia in other diseases classified elsewhere, unspecified severity, with behavioral disturbance; Z68.1 Body mass index [BMI] 19.9 or less, adult; F10.239 Alcohol dependence with withdrawal, unspecified; G93.40 Encephalopathy, unspecified; N39.0 Urinary tract infection, site not specified; E87.0 Hyperosmolality and hypernatremia; D72.829 Elevated white blood cell count, unspecified; I10 Essential (primary) hypertension; R62.7 Adult failure to thrive; E87.6 Hypokalemia; I16.0 Hypertensive urgency; Y90.9 Presence of alcohol in blood, level not specified; E53.8 Deficiency of other specified B group vitamins; E55.9 Vitamin D deficiency, unspecified; K59.00 Constipation, unspecified; R32 Unspecified urinary incontinence; Z20.822 Contact with and (suspected) exposure to COVID-19
CPT/HCPCS: 10880